=== PATIENT | female | born 1965 ===

== ENCOUNTER 2016-12-03 07:48 | Emergency (ER) | payer OTHER, SELFPAY ==
--- NOTE | 2016-12-03 08:09 | ED PDOC ---
Arrival/HPI - General Historian: Patient - History of Present Illness Time/Duration: < week Symptom Course: Unchanged Quality: Stabbing Severity Level: 5 - General Chief Complaint: GI Problem Time Seen by Provider: 12/03/16 08:00 - History of Present Illness Narrative History of Present Illness (Text): 51 F with PMH of muscular pain and chronic NSAID use presents to ED for complaint of "flu-like" symptoms. Patient states that her symptoms began Saturday. Since then, she has been having nausea, diarrhea, fever/chills, body aches, and abdominal pain. She rates pain 5/10 in severity. She describes pain as constant sharp located diffusely throughout abdomen. Nothing makes her symptoms better or worse. She takes naproxen 3 times per day. Denies cp, palpitations SOB, vomiting, urinary symptoms. (Tito Chirinos) Past Medical History - Provider Review Nursing Documentation Reviewed: Yes - Travel History Have you recently traveled outside [place] w/in the past 3 mons?: No - Past History Past History: No Previous - Infectious Disease Hx of Infectious Diseases: None - Tetanus Immunization Tetanus Immunization: Unknown - Past Medical History Past Medical History: No Previous - Cardiac Hx Cardiac Disorders: No - Pulmonary Hx Respiratory Disorders: No - Neurological Hx Neurological Disorder: No - HEENT Hx HEENT Disorder: No - Renal Hx Renal Disorder: No - Endocrine/Metabolic Hx Endocrine Disorders: No - Hematological/Oncological Hx Blood Disorders: Yes Hx Anemia: Yes - Integumentary Hx Dermatological Disorder: No - Musculoskeletal/Rheumatological Hx Musculoskeletal Disorders: No Hx Falls: No - Gastrointestinal Hx Gastrointestinal Disorders: No - Genitourinary/Gynecological Hx Genitourinary Disorders: Yes - Psychiatric Hx Psychophysiologic Disorder: No Hx Depression: No Hx Emotional Abuse: No Hx Physical Abuse: No Hx Substance Use: No - Past Surgical History Past Surgical History: No Previous - Surgical History Hx Hysterectomy: Yes Hx Tubal Ligation: Yes - Suicidal Assessment Feels Threatened In Home Enviroment: No Family/Social History - Physician Review Nursing Documentation Reviewed: Yes Family/Social History: Unknown Family HX Smoking Status: Never Smoked Hx Alcohol Use: No Hx Substance Use: No Hx Substance Use Treatment: No Allergies/Home Meds Allergies/Adverse Reactions: Allergies No Known Allergies Allergy (Verified 02/17/16 13:34) Review of Systems - Review of Systems Constitutional: Fatigue, Fevers Eyes: absent: Vision Changes, Photophobia, Eye Pain ENT: absent: Hearing Changes, Tinnitus, TMJ Pain, Voice Changes, Sore Throat, Rhinorrhea Respiratory: absent: SOB, Cough, Sputum, Wheezing Cardiovascular: absent: Chest Pain, Palpitations, Edema, Calf Pain Gastrointestinal: Abdominal Pain, Diarrhea, Nausea. absent: Constipation, Vomiting, Hematochezia, Hematemesis Genitourinary Female: absent: Dysuria, Frequency, Hematuria Musculoskeletal: Arthralgias, Back Pain, Myalgias. absent: Joint Swelling Skin: absent: Rash, Pruritis, Skin Lesions, Laceration Neurological: absent: Headache, Dizziness, Focal Weakness Endocrine: absent: Diaphoresis, Polyuria, Polydipsia Hemo/Lymphatic: absent: Adenopathy, Easy Bleeding, Easy Bruising Psychiatric: absent: Anxiety, Depression, Suicidal Ideation Physical Exam Vital Signs Reviewed: Yes Temperature: Afebrile Blood Pressure: Normal Pulse: Regular Respiratory Rate: Normal Appearance: Positive for: Uncomfortable Pain Distress: Mild Mental Status: Positive for: Alert and Oriented X 3 - Systems Exam Head: Present: Atraumatic, Normocephalic Pupils: Present: PERRL Extroacular Muscles: Present: EOMI Conjunctiva: Present: Normal Ears: Present: Normal Mouth: Present: Moist Mucous Membranes Pharnyx: Present: Normal. No: ERYTHEMA, EXUDATE, TONSILS ENLARGED Nose (External): Present: Atraumatic Nose (Internal): Present: Normal Inspection Neck: Present: Normal Range of Motion, Paraspinal Tenderness, Trachea Midline Respiratory/Chest: Present: Clear to Auscultation, Good Air Exchange Cardiovascular: Present: Regular Rate and Rhythm, Normal S1, S2, Peripheal Pulses Present Abdomen: Present: Normal Bowel Sounds. No: Tenderness, Distention, Peritoneal Signs, Rebound, Guarding Back: Present: Paraspinal Tenderness Upper Extremity: Present: Normal ROM, NORMAL PULSES, Neurovascularly Intact, Capillary Refill < 2s Lower Extremity: Present: NORMAL PULSES, Normal ROM, Neurovascularly Intact, Capillary Refill < 2 s Neurological: Present: GCS=15, CN II-XII Intact, Speech Normal, Motor Func Grossly Intact, Normal Sensory Function, Normal Cerebellar Funct Skin: Present: Warm, Dry, Normal Color Lymphatic: No: Cervical Adenopathy, Axillary Adenopathy, Inguinal Adenopathy Psychiatric: Present: Alert, Oriented x 3, Normal Insight, Normal Concentration Medical Decision Making ED Course and Treatment: CBC, CMP ordered. Zofran, Protonix, Maalox and 1 L of NS given. Labs reviewed. Patient feeling better after medication. Patient medically stable for discharge. Patient given Zantac prescription. (Tito Chirinos) - Lab Interpretations Lab Results: 12/03/16 08:35 12/03/16 08:35 Lab Results 12/03/16 08:35: Sodium 142, Potassium 3.7, Chloride 107, Carbon Dioxide 26, Anion Gap 13, BUN 9, Creatinine 0.6, Est GFR ( Amer) > 60, Est GFR (Non- Af Amer) > 60, Random Glucose 98, Calcium 9.7, Total Bilirubin 0.6, AST 54 H, ALT 100 H, Alkaline Phosphatase 86, Total Protein 7.7, Albumin 4.0, Globulin 3.7 , Albumin/Globulin Ratio 1.1 12/03/16 08:35: WBC 3.1 L D, RBC 4.26, Hgb 12.9, Hct 38.3, MCV 89.9, MCH 30.3, MCHC 33.7, RDW 13.7, Plt Count 215, MPV 9.5, Gran % 65.2, Lymph % (Auto) 24.4, [place] % (Auto) 9.4 H, Eos % (Auto) 0.7 L, Baso % (Auto) 0.3, Gran # 2.00, Lymph # 0.8 L, [place] # 0.3, Eos # 0.0, Baso # 0.01 - Medication Orders Current Medication Orders: Discontinued Medications Al Hydrox/Mg Hydrox/Simethicone (Maalox Plus 30 Ml) 30 ml PO STAT STA Stop: 12/03/16 09:09 Last Admin: 12/03/16 09:36 Dose: 30 ml Sodium Chloride (Sodium Chloride 0.9%) 1,000 mls @ 999 mls/hr IV .Q1H1M STA Stop: 12/03/16 09:18 Last Admin: 12/03/16 08:30 Dose: 999 mls/hr Ondansetron HCl (Zofran Inj) 4 mg IVP STAT STA Stop: 12/03/16 08:19 Last Admin: 12/03/16 08:58 Dose: 4 mg Pantoprazole Sodium (Protonix Inj) 40 mg IVP STAT STA Stop: 12/03/16 09:08 Last Admin: 12/03/16 09:36 Dose: 40 mg Disposition/Present on Arrival - Present on Arrival Any Indicators Present on Arrival: No History of DVT/PE: No History of Uncontrolled Diabetes: No Urinary Catheter: No History Surgical Site Infection Following: None - Disposition Have Diagnosis and Disposition been Completed?: Yes Disposition Time: 09:00 Patient Plan: Discharge - Disposition Diagnosis: Gastroenteritis Disposition: HOME/ ROUTINE Condition: IMPROVED Discharge Instructions (ExitCare): Gastroenteritis (ED) Additional Instructions: Thank you for letting us take care of you today. Your provider was Dr. Timmons. You were treated for diarrhea. The emergency medical care you received today was directed at your acute symptoms. If you were prescribed any medication, please fill it and take as directed. It may take several days for your symptoms to resolve. Return to the Emergency Department if your symptoms worsen, do not improve, or if you have any other problems. Please contact your doctor or call one of the physicians/clinics you have been referred to that are listed on the Patient Visit Information form that is included in your discharge packet. Bring any paperwork you were given at discharge with you along with any medications you are taking to your follow up visit. Our treatment cannot replace ongoing medical care by a primary care provider (PCP) outside of the emergency department. Thank you for allowing the [facility] team to be part of your care today. Follow up with your doctor in 2-3 days for re-evaluation. Prescriptions: Ranitidine HCl [Zantac] 150 mg PO BID #20 tablet Referrals: Zach Garcia [Primary Care Provider] - Follow up with primary
[2016-12-03] MEDS ORDERED: Sodium Chloride 0.9% 1,000 ML IV STA (08:18)
[2016-12-03 08:50] LABS: BASO # 0.01 K/mm3 (0.0-2.0); BASO % 0.3 % (0.0-3.0); EOS % 0.7 % (1.5-5.0); GRAN % 65.2 % (50.0-68.0); HEMOGLOBIN 12.9 gm/dL (12.0-16.0); LYMPH # 0.8 (1.2-3.4); LYMPH % 24.4 % (22.0-35.0); MEAN CELL VOLUME 89.9 fL (80.0-105.0); MEAN CORPUSCULAR HEMOGLOBIN 30.3 pg (25.0-35.0); MEAN CORPUSCULAR HGB CONC 33.7 g/dl (31.0-37.0); MEAN PLATELET VOLUME 9.5 fl (7.0-11.0); MONO # 0.3 (0.1-0.6); MONO % 9.4 % (1.0-6.0); PLATELET COUNT 215 10^3/uL (120.0-450.0); RBC 4.26 10^6/uL (3.5-6.1); RED CELL DISTRIBUTION WIDTH 13.7 % (11.5-14.5); WHITE BLOOD COUNT 3.1 10^3/ul (4.5-11.0)
[2016-12-03 08:58] LABS: ALB/GLOB RATIO 1.1 (1.1-1.8); ALT/SGPT 100 U/L (7-56); AST/SGOT 54 U/L (15-39); BLOOD UREA NITROGEN 9 mg/dL (7-21); CALCIUM 9.7 mg/dL (8.4-10.5); GFR AFRICAN-AMERICAN > 60; GFR NON-AFRICAN AMERICAN > 60
[2016-12-03 09:08] VITALS: BMI 19.9
[2016-12-03] MEDS ORDERED: Alum-Mag Hydrox-Simethicone Susp (30 mL) PO STA (09:08)
[2016-12-03 09:46] VITALS: BP 132/77; PULSE 74; RESP 16; TEMP 98.4; O2SAT 99
== END 2016-12-03 10:01 | disposition home or self-care (01) ==
LOC: ED 07:48
DX: K52.9 Noninfective gastroenteritis and colitis, unspecified (principal)
CPT/HCPCS: 80053; 85025; 96361; 96374; 96375; 99284; C9113; J2405; J7040

== ENCOUNTER 2017-09-06 10:50 | Emergency (ER) | payer OTHER ==
[2017-09-06 10:50] VITALS: BMI 25.7
[2017-09-06 11:06] VITALS: TEMP 97.8
[2017-09-06 11:22] VITALS: RESP 18
--- NOTE | 2017-09-06 11:22 | ED PDOC ---
Arrival/HPI - General Chief Complaint: Upper Extremity Problem/Injury Time Seen by Provider: 09/06/17 10:51 Historian: Patient - History of Present Illness Narrative History of Present Illness (Text): 09/06/17 11:17 52 y/o female, pmh including urterine fibroid, nkda, post menopausal, c/o rt. shoulder and left hip pain s/p fall about 2 months ago. Pt. stated that she slipped on the escalator about 2 months ago landed on the rt. shoulder, been having pain, no numbness or tingling, no recent assault or domestic violence. Pt. also stated that she has lt. hip pain from the fall as well, been walking, no thigh or calf pain, no numbness or tingling, no rash, no change in vision, no palpitation, no other medical or psychological complaints. Pt. has no homicidal or suicidal ideation, no auditory or visual hallucination. Pt. feels safe at home. Past Medical History - Provider Review Nursing Documentation Reviewed: Yes - Past History Past History: No Previous - Infectious Disease Hx of Infectious Diseases: None - Tetanus Immunization Tetanus Immunization: Unknown - Past Medical History Past Medical History: No Previous - Cardiac Hx Cardiac Disorders: No - Pulmonary Hx Respiratory Disorders: No - Neurological Hx Neurological Disorder: No - HEENT Hx HEENT Disorder: No - Renal Hx Renal Disorder: No - Endocrine/Metabolic Hx Endocrine Disorders: No - Hematological/Oncological Hx Blood Disorders: Yes Hx Anemia: Yes - Integumentary Hx Dermatological Disorder: No - Musculoskeletal/Rheumatological Hx Musculoskeletal Disorders: No Hx Falls: No - Gastrointestinal Hx Gastrointestinal Disorders: No - Genitourinary/Gynecological Hx Genitourinary Disorders: Yes Other/Comment: FIBROID - Psychiatric Hx Psychophysiologic Disorder: No Hx Depression: No Hx Emotional Abuse: No Hx Physical Abuse: No Hx Substance Use: No - Past Surgical History Past Surgical History: No Previous - Surgical History Hx Hysterectomy: Yes Hx Tubal Ligation: Yes - Anesthesia Hx Anesthesia: Yes Hx Anesthesia Reactions: No Hx Malignant Hyperthermia: No - Suicidal Assessment Feels Threatened In Home Enviroment: No Family/Social History - Physician Review Nursing Documentation Reviewed: Yes Family/Social History: Unknown Family HX Smoking Status: Never Smoked Hx Alcohol Use: No Hx Substance Use: No Hx Substance Use Treatment: No Allergies/Home Meds Allergies/Adverse Reactions: Allergies No Known Allergies Allergy (Verified 09/06/17 10:59) Review of Systems - Review of Systems Constitutional: absent: Fatigue, Fevers Eyes: absent: Vision Changes ENT: absent: Hearing Changes Respiratory: absent: SOB, Cough Cardiovascular: absent: Chest Pain Gastrointestinal: absent: Abdominal Pain, Nausea, Vomiting Musculoskeletal: Arthralgias. absent: Back Pain, Neck Pain, Joint Swelling, Myalgias Skin: absent: Rash, Pruritis Neurological: absent: Headache Psychiatric: absent: Anxiety, Depression Physical Exam Vital Signs Reviewed: Yes Vital Signs Temp Pulse Resp BP Pulse Ox 09/06/17 11:22 97.8 F 71 18 144/81 97 09/06/17 11:01 97.8 F 71 16 144/81 97 Temperature: Afebrile Blood Pressure: Normal Pulse: Regular Respiratory Rate: Normal Appearance: Positive for: Well-Appearing, Non-Toxic, Comfortable Pain Distress: Moderate Mental Status: Positive for: Alert and Oriented X 3 - Systems Exam Head: Present: Atraumatic, Normocephalic Pupils: Present: PERRL Extroacular Muscles: Present: EOMI Conjunctiva: Present: Normal Mouth: Present: Moist Mucous Membranes Neck: Present: Normal Range of Motion, Trachea Midline. No: Meningeal Signs, MIDLINE TENDERNESS, Paraspinal Tenderness, Lymphadenopathy Respiratory/Chest: Present: Clear to Auscultation, Good Air Exchange. No: Respiratory Distress, Accessory Muscle Use Cardiovascular: Present: Regular Rate and Rhythm, Normal S1, S2. No: Murmurs Abdomen: No: Tenderness, Distention, Peritoneal Signs, Rebound, Guarding Back: Present: Normal Inspection. No: CVA Tenderness, Midline Tenderness, Paraspinal Tenderness Upper Extremity: Present: Normal Inspection, Other (RUE: +ttp on the rt. deltoid shoulder region, no deformity, FROM without limitation, sensation intact , motor 5/5, +radial pulse, capillary refill< 2 seconds, neurovascular intact. ) . No: Cyanosis, Edema Lower Extremity: Present: Normal Inspection, Neurovascularly Intact, Other (Lt. hip: +ttp on the lt. lateral hip region, no deformity, FROM without limitation, negative raffy and quesada signs, +DPPT pulses, capillary refill< 2 seconds, neurovascular intact. ). No: Edema, Tenderness, Swelling Neurological: Present: GCS=15, Speech Normal, Motor Func Grossly Intact, Gait Normal, Memory Normal Skin: Present: Warm, Dry, Normal Color. No: Rashes Psychiatric: Present: Alert, Oriented x 3, Normal Insight, Normal Concentration Medical Decision Making ED Course and Treatment: 09/06/17 11:28 -xray -toradol IM -Observe and reassess 09/06/17 12:50 -RT. shoulder and lt. hip/pelvis xrays: No acute findings related to/accounting for the clinical presentation. -Pain decreased, will discharge home. -Pt. stated that she feels safe to go home. -Discharge home with motrin, flexeril, heat compression, follow up with your own pmd and orthopedic within 2 days, return to the ER for any new or worsening signs or symptoms. - RAD Interpretation Radiology Orders: 09/06/17 11:22 HIP MIN 2V W/ PELVIS LT [RAD] Stat SHOULDER RIGHT [RAD] Stat Rt. shoulder xray: BONES: Normal. No fracture. JOINTS: Normal. Glenohumeral and acromioclavicular joints preserved. No osteoarthritis. Evidence of calcific tendinopathy. SOFT TISSUES: Normal. OTHER FINDINGS: None. IMPRESSION: No acute findings related to/accounting for the clinical presentation. Lt. hip and pelvis xray: BONES: Normal. No fracture. JOINTS: Normal. SOFT TISSUES: Normal. OTHER FINDINGS: None. IMPRESSION: No acute findings related to/accounting for the clinical presentation. Director Of Employer Services: Radiologist - Medication Orders Current Medication Orders: Discontinued Medications Ketorolac Tromethamine (Toradol) 60 mg IM STAT STA Stop: 09/06/17 11:23 Last Admin: 09/06/17 11:40 Dose: 60 mg SILVIA Pain Assessment Document 09/06/17 11:40 LION (Rec: 09/06/17 11:43 [facility] [place]) Pain Reassessment Is this a pain reassessment? 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 Disposition/Present on Arrival - Present on Arrival Any Indicators Present on Arrival: No History of DVT/PE: No History of Uncontrolled Diabetes: No Urinary Catheter: No History of Decub. Ulcer: No History Surgical Site Infection Following: None - Disposition Have Diagnosis and Disposition been Completed?: Yes Diagnosis: Arthralgia, Bursitis Disposition: HOME/ ROUTINE Disposition Time: 11:29 Patient Plan: Discharge Patient Problems: Current Active Problems Problem Status Onset Arthralgia Acute Bursitis Acute Condition: IMPROVED Discharge Instructions (ExitCare): Bursitis, Joint Pain Print Language: ALGERIAN Additional Instructions: -Discharge home with motrin, flexeril, heat compression, follow up with your own pmd and orthopedic within 2 days, return to the ER for any new or worsening signs or symptoms. Prescriptions: Cyclobenzaprine [Cyclobenzaprine HCl] 10 mg PO TID PRN #30 tab PRN Reason: Other Ibuprofen [Motrin] 600 mg PO QID PRN #30 tab PRN Reason: Other Referrals: PCP,NO [Primary Care Provider] - Follow up with primary Pop Frazier III, MD [Medical Doctor] - Follow up with primary Forms: WORK NOTE
--- NOTE | 2017-09-06 12:30 | RAD ---
PROCEDURE: Left Hip X-ray Radiographs. HISTORY: Posttraumatic pain COMPARISON: None. FINDINGS: BONES: Normal. No fracture. JOINTS: Normal. SOFT TISSUES: Normal. OTHER FINDINGS: None. IMPRESSION: No acute findings related to/accounting for the clinical presentation.
--- NOTE | 2017-09-06 12:30 | RAD ---
PROCEDURE: Radiographs of the Right Shoulder HISTORY: fall, pain COMPARISON: No prior. FINDINGS: BONES: Normal. No fracture. JOINTS: Normal. Glenohumeral and acromioclavicular joints preserved. No osteoarthritis. Evidence of calcific tendinopathy. SOFT TISSUES: Normal. OTHER FINDINGS: None. IMPRESSION: No acute findings related to/accounting for the clinical presentation.
[2017-09-06 13:22] LABS: URINE BILIRUBIN NEGATIVE (NEGATIVE); URINE BLOOD NEGATIVE (NEGATIVE); URINE GLUCOSE (UA) NEGATIVE (NEGATIVE); URINE LEUKOCYTE ESTERASE MODERATE Leu/uL (NEGATIVE); URINE PROTEIN NEGATIVE mg/dL (<30 mg/dL); URINE UROBILINOGEN 0.2 E.U./dL (<1 E.U./dL)
[2017-09-06 13:25] LABS: URINE APPEARANCE CLEAR (CLEAR); URINE COLOR YELLOW (YELLOW)
[2017-09-06 13:37] LABS: URINE EPITHELIAL CELLS 0 - 2 /hpf (0-5); URINE RBC NEGATIVE /hpf (0-2); URINE WBC 0 - 2 /hpf (0-6)
--- NOTE | 2017-09-06 14:26 | RAD ---
PROCEDURE: Radiographs of the Chest and Left Ribs. HISTORY: Fall x 4 months? COMPARISON: 10/11/2016. TECHNIQUE: Frontal radiograph of the chest and multiple oblique radiographs of the left ribs were obtained. FINDINGS: LEFT RIBS: There are old fracture deformities in the left lateral 9th and 10th ribs. No acute fracture. LUNGS: The lungs are well inflated and clear. PLEURA: No pneumothorax or pleural fluid. CARDIOVASCULAR: Normal sized heart. No pulmonary vascular congestion. OTHER FINDINGS: None. IMPRESSION: Old fracture deformities in the left lateral 9th and 10th ribs. No acute fracture. Clear lungs.
--- NOTE | 2017-09-06 14:37 | ED PDOC ---
Physical Exam Vital Signs Temp Pulse Resp BP Pulse Ox 09/06/17 12:54 68 18 138/79 97 09/06/17 11:22 97.8 F 71 18 144/81 97 09/06/17 11:01 97.8 F 71 16 144/81 97 Medical Decision Making ED Course and Treatment: 09/06/17 14:35 -Pt. additionally complaining about old left rib from the fall about 4 months ago, wants to have repeat xray which I performed show left 9th and 10 rib fracture, incentive spirometer ordered. -Pt. also additionally complain about feeling tired and urinary frequency for the past 2 days, UA show +UTI, macrobid will be prescribed. -Pt. feels well, asymptomatic, wants to go home and feels safe to go home. - Lab Interpretations Lab Results: Lab Results 09/06/17 13:05: Urine Color Yellow, Urine Appearance Clear, Urine pH 7.0, Ur Specific [place] <= 1.005, Urine Protein Negative, Urine Glucose (UA) Negative, Urine Ketones Negative, Urine Blood Negative, Urine Nitrate Negative, Urine Bilirubin Negative, Urine Urobilinogen 0.2, Ur Leukocyte Esterase Moderate H, Urine RBC Negative, Urine WBC 0 - 2, Ur Epithelial Cells 0 - 2, Urine Bacteria Robotics Engineer 09/06/17 13:02: POC Glucose (mg/dL) 93 I have reviewed the lab results: Yes - RAD Interpretation Radiology Orders: 09/06/17 11:22 HIP MIN 2V W/ PELVIS LT [RAD] Stat SHOULDER RIGHT [RAD] Stat 09/06/17 13:26 RIBS LEFT & PA CHEST [RAD] Stat PROCEDURE: Radiographs of the Chest and Left Ribs. HISTORY: Fall x 4 months? COMPARISON: 10/11/2016. TECHNIQUE: Frontal radiograph of the chest and multiple oblique radiographs of the left ribs were obtained. FINDINGS: LEFT RIBS: There are old fracture deformities in the left lateral 9th and 10th ribs. No acute fracture. LUNGS: The lungs are well inflated and clear. PLEURA: No pneumothorax or pleural fluid. CARDIOVASCULAR: Normal sized heart. No pulmonary vascular congestion. OTHER FINDINGS: None. IMPRESSION: Old fracture deformities in the left lateral 9th and 10th ribs. No acute fracture. Clear lungs. 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 Yes Presence of Pain Presence of Pain Yes Pain Scale Used Pain Scale Used Numeric Location Left, Right or Bilateral Right Pain Location Body Site Arm Description Description Sharp Intensity of Pain at present 7 IM Administration Charges Document 09/06/17 11:40 LION (Rec: 09/06/17 11:43 [facility]) Injection Site MAR Injection Site Right Deltoid Charges for Administration # of IM Administrations 1 Disposition/Present on Arrival - Present on Arrival Any Indicators Present on Arrival: No History of DVT/PE: No History of Uncontrolled Diabetes: No Urinary Catheter: No History of Decub. Ulcer: No History Surgical Site Infection Following: None - Disposition Have Diagnosis and Disposition been Completed?: Yes Diagnosis: Arthralgia, Bursitis, UTI (urinary tract infection), Rib fracture Disposition: HOME/ ROUTINE Disposition Time: 14:37 Patient Plan: Discharge Patient Problems: Current Active Problems Problem Status Onset Arthralgia Acute Bursitis Acute Rib fracture Acute UTI (urinary tract infection) Acute Condition: IMPROVED Discharge Instructions (ExitCare): Bursitis, Joint Pain Print Language: [place] Additional Instructions: -Discharge home with motrin, flexeril, macrobid, incentive spirometer, heat compression, follow up with your own pmd and orthopedic within 2 days, return to the ER for any new or worsening signs or symptoms. Prescriptions: Cyclobenzaprine [Cyclobenzaprine HCl] 10 mg PO TID PRN #30 tab PRN Reason: Other Ibuprofen [Motrin] 600 mg PO QID PRN #30 tab PRN Reason: Other Nitrofurantoin Macrocrystals [Macrobid] 100 mg PO BID #14 cap Referrals: Pop Frazier III, MD [Medical Doctor] - Follow up with primary PCP,NO [Primary Care Provider] - Follow up with primary Forms: WORK NOTE
[2017-09-06 14:57] VITALS: BP 135/71; PULSE 67; O2SAT 98
== END 2017-09-06 15:10 | disposition home or self-care (01) ==
LOC: ED 10:50
DX: M25.511 Pain in right shoulder (principal); M25.552 Pain in left hip; M75.51 Bursitis of right shoulder; S22.42XD Multiple fractures of ribs, left side, subsequent encounter for fracture with routine healing; X58.XXXD Exposure to other specified factors, subsequent encounter; N39.0 Urinary tract infection, site not specified
CPT/HCPCS: 71101; 73030; 73502; 81001; 82948; 87086; 96372; 99284; J1885